=== PATIENT | female | born 1975 | race Two or more races ===

== ENCOUNTER 2017-08-06 16:52 | Inpatient (IN) | payer OTHER ==
[~2017-08-06] VITALS: Ht 162.6 cm; Wt 83.0 kg
[2017-08-06] MEDS ORDERED: LEVO25TA4 PO (17:02)
[2017-08-06] MEDS ORDERED: KETOROLAC 30 MG/1 ML ONE (17:50)
[2017-08-06 18:00] LABS: HEMATOCRIT 41.5 % (34.6-47.8); HEMOGLOBIN 14.3 g/dL (11.7-16.4); WHITE BLOOD COUNT 10.9 x10^3/uL (3.4-10)
[2017-08-06] MEDS ORDERED: KETOROLAC 30 MG/1 ML IVPush ONE (18:00)
[2017-08-06] MEDS ORDERED: PLEASE ENTER HEIGHT AND WEIGHT MC SCH (18:00)
[2017-08-06] MEDS ORDERED: SODIUM CHLORIDE FLUSH 10ML SYR IVF ONE (18:00)
[2017-08-06 18:11] LABS: ASPARTATE AMINO TRANSFERASE 16 U/L (15-37); BLOOD UREA NITROGEN 10 mg/dL (7-18)
[2017-08-06 18:15] LABS: IS PT STATUS REG ER OR PRE ER? YES
[2017-08-06] MEDS ORDERED: ONDANSETRON 2MG/ML, 2ML IVPush PRN (19:30)
[2017-08-06] MEDS ORDERED: morphine SULFATE 10 MG/ML, 1ML IVPush PRN (19:30)
[2017-08-06] MEDS ORDERED: POLYETHYLENE GLYCOL 17 GM PACKET PO PRN (19:30)
[2017-08-06] MEDS ORDERED: BISACODYL 10 MG SUPP PR PRN (19:30)
[2017-08-06] MEDS ORDERED: hydrALAzine 20 MG/ML, 1ML IVPush PRN (19:30)
[2017-08-06] MEDS ORDERED: NITROGLYCERIN 0.4 MG BOTTLE (25 TABS) SL PRN (19:30)
[2017-08-06] MEDS ORDERED: OMNIPAQUE 350 MG/ML, 100ML BOTTLE ONE (20:31)
[2017-08-06 21:00] VITALS: BP 144/85
[2017-08-06] MEDS: HEPARIN 5,000 UNITS/ML, 1ML SQ SCH (21:00)
[2017-08-06] MEDS: ACETAMINOPHEN 325 MG TABLET PO PRN (21:00)
[2017-08-06] MEDS: SODIUM CHLORIDE FLUSH 10ML SYR IVF SCH (21:00)
[2017-08-07 00:30] LABS: IS PT STATUS REG ER OR PRE ER? NO
[2017-08-07 01:45] VITALS: BP 116/76
[2017-08-07] MEDS: HEPARIN 5,000 UNITS/ML, 1ML SQ SCH ×2 (04:53→13:00)
[2017-08-07] MEDS: ACETAMINOPHEN 325 MG TABLET PO PRN ×2 (04:59→11:11)
[2017-08-07] MEDS ORDERED: ASPIRIN 81 MG TABLET EC PO SCH (06:00)
[2017-08-07 06:22] LABS: HEMOGLOBIN 13.5 g/dL (11.7-16.4); WHITE BLOOD COUNT 8.2 x10^3/uL (3.4-10)
[2017-08-07 06:26] LABS: ASPARTATE AMINO TRANSFERASE 15 U/L (15-37); BLOOD UREA NITROGEN 12 mg/dL (7-18)
[2017-08-07 06:31] LABS: IS PT STATUS REG ER OR PRE ER? NO
[2017-08-07] MEDS ORDERED: REGADENOSON 0.4 MG/5 ML SYRINGE ONE (07:49)
[2017-08-07] MEDS ORDERED: CHLORTHALIDONE 25 MG TABLET PO SCH (09:00)
[2017-08-07] MEDS ORDERED: LEVOTHYROXINE 25 MCG TABLET PO SCH (09:00)
[2017-08-07] MEDS ORDERED: SENNA/DOCUSATE TABLET PO SCH (09:00)
[2017-08-07 10:51] VITALS: BP 128/80
[2017-08-07] MEDS ORDERED: CHLO25TA PO (11:44)
[2017-08-07] MEDS ORDERED: FAMO20TA7 PO (11:44)
[2017-08-07] MEDS: SODIUM CHLORIDE FLUSH 10ML SYR IVF SCH (13:12)
== END 2017-08-07 13:30 | disposition home or self-care (01) | DRG 313 ==
LOC: ED 18:25 → EDIP 19:08 → 5SO 20:26
PROVIDERS: ADMIT Hospitalist; ATTEND Hospitalist
DX: R07.9 Chest pain, unspecified (principal); E03.9 Hypothyroidism, unspecified; J98.11 Atelectasis; E66.9 Obesity, unspecified; E78.5 Hyperlipidemia, unspecified; I10 Essential (primary) hypertension; K21.9 Gastro-esophageal reflux disease without esophagitis; Z83.3 Family history of diabetes mellitus; Z68.31 Body mass index [BMI] 31.0-31.9, adult; Z88.0 Allergy status to penicillin
CPT/HCPCS: 36415; 71010; 71275; 78452; 80053; 80061; 83690; 84439; 84443; 84484; 85025; 93005; 93017; 96374; J1644; J1885; J2785; Q9967; A9502; C9898

== ENCOUNTER → 2017-08-25 | Outpatient (CLI) | payer OTHER ==
[~2017-08-25] MED LIST: CHLO25TA PO; FAMO20TA7 PO; LEVO25TA4 PO
== END | disposition home or self-care (01) ==
LOC: RAD 15:44
PROVIDERS: ATTEND Physician Assistant Medical
DX: M79.605 Pain in left leg (principal)

== ENCOUNTER → 2018-01-21 | Outpatient (CLI) | payer MEDICAID | END | disposition home or self-care (01) | LOC: CFH 07:33 | PROVIDERS: ATTEND Family Medicine | DX: Z12.31 Encounter for screening mammogram for malignant neoplasm of breast (principal) | CPT/HCPCS: 77067 ==

== ENCOUNTER 2019-01-09 10:16 | Outpatient (CLI) | payer MEDICAID ==
[2019-01-09] MEDS ORDERED: FLUO40CA2 PO (10:50)
[2019-01-09] MEDS ORDERED: CHOL500015 PO (10:50)
[2019-01-09] MEDS ORDERED: LEVO100T PO (10:50)
[2019-01-09] MEDS ORDERED: calcium citrate PO (10:50)
[2019-01-09] MEDS ORDERED: ATOR20TA37 PO (10:50)
== END 2019-01-09 23:59 | disposition home or self-care (01) ==
LOC: STAR 10:16
PROVIDERS: ATTEND Obstetrics & Gynecology Female Pelvic Medicine and Reconstructive Surgery
DX: Z02.9 Encounter for administrative examinations, unspecified (principal)

== ENCOUNTER 2019-01-16 07:40 | Day surgery (SDC) | payer MEDICAID ==
[2019-01-09 10:44] VITALS: BP 123/81
[~2019-01-16] VITALS: Ht 165.1 cm; Wt 90.4 kg
[~2019-01-16 07:40] MED LIST changes: +ATOR20TA37 PO; +BUPIVACAINE/PF 0.25% ONE; +CHOL500015 PO; +EPINEPHRINE 1 MG/ML, 1ML ONE; +FLUO40CA2 PO; +LEVO100T PO; +calcium citrate PO
[2019-01-16] MEDS ORDERED: FENTANYL PF 250 MCG/5ML ONE ×2 (07:53→10:52)
[2019-01-16] MEDS ORDERED: MIDAZOLAM 1 MG/ML, 2ML ONE (07:53)
[2019-01-16] MEDS ORDERED: ONDANSETRON 2MG/ML, 2ML ONE (07:57)
[2019-01-16] MEDS ORDERED: SUCCINYLCHOLINE 20 MG/ML, 10ML ONE (07:57)
[2019-01-16] MEDS ORDERED: GLYCOPYRROLATE 0.2MG/1ML, 5ML ONE (07:57)
[2019-01-16] MEDS ORDERED: DEXAMETHASONE 4 MG/ML, 1ML ONE (07:57)
[2019-01-16] MEDS ORDERED: ROCURONIUM 10MG/ML,5ML ONE (07:57)
[2019-01-16] MEDS ORDERED: PROPOFOL 10 MG/ML, 20ML ONE (07:57)
[2019-01-16] MEDS ORDERED: CEFAZOLIN 1,000 MG ONE (07:57)
[2019-01-16] MEDS ORDERED: NEOSTIGMINE 1 MG/ML, 10ML ONE (07:57)
[2019-01-16] MEDS ORDERED: GABAPENTIN 300 MG CAPSULE PO ONE (08:00)
[2019-01-16] MEDS ORDERED: ACETAMINOPHEN 500 MG TABLET PO ONE (08:00)
[2019-01-16] MEDS ORDERED: SCOPOLAMINE PATCH, 1.5MG PATCH.TD72 TD ONE (08:00)
[2019-01-16] MEDS ORDERED: NEOMY/POLYMYXIN B GU IRR. 1 ML ONE (08:14)
[2019-01-16] MEDS ORDERED: LACTATED RINGERS 1,000 ML IV SCH (08:23)
[2019-01-16 08:25] VITALS: BP 123/81
[2019-01-16] MEDS ORDERED: OXYcodone 5 MG/5 ML ORAL.SOL UDC PO PRN (09:30)
[2019-01-16] MEDS ORDERED: HALOPERIDOL 5 MG/ML IV PRN (09:30)
[2019-01-16] MEDS ORDERED: MEPERIDINE/PF 25MG/0.5ML IVPush PRN (09:30)
[2019-01-16] MEDS ORDERED: LABETALOL 5MG/ML, 20ML IV PRN (09:30)
[2019-01-16] MEDS ORDERED: MORPHINE SULFATE 4 MG/ML, 1ML IVPush PRN (09:30)
[2019-01-16] MEDS ORDERED: PROMETHAZINE 25 MG SUPP PR PRN (09:30)
[2019-01-16] MEDS ORDERED: PROMETHAZINE 25 MG/ML, 1ML IM PRN ×2 (09:30)
[2019-01-16] MEDS ORDERED: ONDANSETRON ODT 8 MG PO PRN (09:30)
[2019-01-16] MEDS ORDERED: hydrALAzine 20 MG/ML, 1ML IV PRN (09:30)
[2019-01-16] MEDS ORDERED: PROMETHAZINE 12.5 MG SUPP PR PRN (09:30)
[2019-01-16] MEDS ORDERED: ONDANSETRON 2MG/ML, 2ML IV PRN (09:30)
[2019-01-16] MEDS ORDERED: HYDROmorphone 2 MG/ML, 1ML IVPush PRN (09:30)
[2019-01-16] MEDS ORDERED: PROMETHAZINE 25 MG/ML, 1ML IV PRN (09:30)
[2019-01-16] MEDS ORDERED: KETOROLAC 30 MG/1 ML ONE (09:35)
[2019-01-16] MEDS ORDERED: FENTANYL PF 100 MCG/2ML ONE (11:16)
[2019-01-16] MEDS ORDERED: OXYcodone 5 MG/5 ML ORAL.SOL UDC ONE (11:16)
[2019-01-16] MEDS: FENTANYL PF 100 MCG/2ML IV PRN ×2 (11:56→12:15)
[2019-01-16] MEDS ORDERED: OXYcodone/APAP 5/325MG TABLET ONE (15:48)
[2019-01-16] MEDS ORDERED: ONDANSETRON 2MG/ML, 2ML IVPush PRN (16:00)
[2019-01-16] MEDS ORDERED: OXYcodone/APAP 5/325MG TABLET PO PRN (16:00)
[2019-01-16] MEDS ORDERED: KETOROLAC 30 MG/1 ML IVPush PRN (16:00)
== END 2019-01-16 17:45 | disposition home or self-care (01) ==
LOC: OUT 07:40
PROVIDERS: ATTEND Obstetrics & Gynecology Female Pelvic Medicine and Reconstructive Surgery
DX: N72 Inflammatory disease of cervix uteri (principal); N92.1 Excessive and frequent menstruation with irregular cycle; N94.6 Dysmenorrhea, unspecified; N94.10 Unspecified dyspareunia; N81.89 Other female genital prolapse; N39.3 Stress incontinence (female) (male); N32.81 Overactive bladder; F41.9 Anxiety disorder, unspecified; E03.9 Hypothyroidism, unspecified; F32.9 Major depressive disorder, single episode, unspecified; D64.9 Anemia, unspecified; N83.8 Other noninflammatory disorders of ovary, fallopian tube and broad ligament; Z88.1 Allergy status to other antibiotic agents
CPT/HCPCS: 57265; 57282; 57288; 58552; 81025; 88307; C1771; J0171; J0330; J0690; J1100; J1885; J2250; J2405; J2704; J2710; J3010; J3490; J7120